=== PATIENT | male | born 1980 | race Caucasian/White ===

== ENCOUNTER 2023-08-12 04:55 | Emergency (ER) | payer BC, SELFPAY ==
[2023-08-12 04:58] VITALS: BP 180/90
[2023-08-12 07:40] LABS: Urine Albumin Negative (Neg - Trace); Urine Bilirubin Negative (Negative); Urine Character Clear (Clear); Urine Color Yellow; Urine Glucose Negative (Negative); Urine Ketone Negative (Negative); Urine Leukocyte Trace (Negative); Urine Nitrite Negative (Negative); Urine Occult Blood 2+ (Negative); Urine Urobilinogen Negative (Neg - 1+)
[2023-08-12 07:54] LABS: % Basophils 0.7 % (0-2); % Immature Granulocytes 0.3 % (0-0.5); % Monocytes 9.8 % (1.7-9.3); % Neutrophils 68.2 % (42.2-75.2); Absolute Basophils 0.1 10^3/uL (0-0.2); Absolute Eosinophils 0.1 10^3/uL (0-0.7); Absolute Lymphocytes 1.8 10^3/uL (1.2-3.4); Absolute Monocytes 0.9 10^3/uL (0.1-0.6); Hematocrit 44.6 % (39.0-52.0); Hemoglobin 14.8 g/dL (13.0-18.0); Mean Corp Hgb Conc. 33.2 g/dL (33.0-37.0); Mean Corpuscular Volume 93.3 fL (80.0-94.0); Nucleated Red Blood Cells % 0 % (-); Platelet Count 271 10^3/uL (130-400); Red Blood Cell Count 4.78 10^6/uL (4.70-6.10); Red Cell Dist. Width 12.8 % (11.5-14.5); White Blood Cell Count 8.8 10^3/uL (4.8-10.8)
[2023-08-12 07:57] LABS: Urine White Cell 0-2 /HPF (0-5)
[2023-08-12 08:11] LABS: ALT (SGPT) 44 U/L (0-50); AST (SGOT) 29 U/L (17-59); Albumin 4.6 g/dl (3.5-5.0); Alkaline Phosphatase 94 U/L (38-126); Blood Urea Nitrogen 16 mg/dl (9-20); Carbon Dioxide 28 mmol/L (22-30); Chloride 104 mmol/L (98-107); Glucose 99 mg/dl (70-99); Lipase 121 U/L (23-300); Potassium 4.4 mmol/L (3.5-5.1); Sodium 139 mmol/L (135-145); Total Bilirubin 0.6 mg/dl (0.2-1.3); Total Protein 7.8 g/dl (6.3-8.2); eGFR > 60.00
[2023-08-12 08:45] VITALS: BP 141/76
[2023-08-12 08:46] VITALS: BMI 50.8
--- NOTE | 2023-08-12 09:20 | ED.GENMED ---
History of Present Illness
General
Chief Complaint: Abdominal Pain
Time Seen by Provider: 08/12/23 07:39
Travel History
Have you had any contact with someone who has COVID-19?: No
Do you have any symptoms of coronavirus? Fever > 100 degrees, chills, cough, shortness of breath, sore throat, loss of taste or smell, muscle aches, or headache?: No
History of Present Illness
History of Present Illness:
43-year-old male presents to the emergency department for evaluation of suprapubic pressure and left flank pain developing yesterday. Pressure symptoms lasted for majority of yesterday, felt as though he needed to urinate frequently. That symptom
improved this morning however he had abrupt onset of left flank pain and diaphoresis that lasted approximate 15 to 30 minutes. He is currently asymptomatic. No hematuria or dysuria. Denies any fevers or chills currently
Past History
Past History
ED Past Medical History: None
ED Past Surgical History: None
Review of Systems
Review of Systems
Allergies reviewed?: Yes
All Other Systems: ROS reviewed and negative except as documented in HPI and ROS
Phy Exam
Physical Exam
Physical Exam:
GEN: Well appearing, NAD, WDWN
HEENT: Oral mucosa moist, no scleral icterus
Cardiac: Regular rate
Lung: No respiratory distress, no tachypnea
Abdomen: Soft, nontender, no CVA tenderness
MSK: No gross deformity or injuries
Skin: Good color, no pallor or jaundice, no rashes
Neuro: AO x3, moves all extremities freely
Psych: Calm, cooperative
Course
Orders/Labs/Results
Orders:
Orders
08/12/23 07:23
CMP [Comprehensive Metabolic Panel] Urgent
Complete Blood Count/With Diff Urgent
Lipase Urgent
08/12/23 07:26
Urinalysis Reflex To Culture Urgent
Date Specimen was Collected: 08/12/23
Time Specimen was Collected: 07:24
Urine Microscopic Reflex Cult Urgent
08/12/23 08:26
CT Abd/pel Without Iv Or Oral Urgent
Comment:
Reason For Exam: L flank pain/hematuria
Abnormal Lab Results
08/12/23 08/12/23
07:23 07:26
Absolute Monos (auto) 0.9 H 10^3/uL
(0.1-0.6)
Lymphocytes % 20.0 L %
(20.5-51.1)
Monocytes % 9.8 H %
(1.7-9.3)
Ur Occult Blood Reflex 2+ A
(Negative)
Leukocyte Esterase Rfl Trace A
(Negative)
Urine RBC 7-10 A /HPF
(0-2)
08/12/23 07:23
08/12/23 07:23
Vital Signs
Initial and Last Documented VS:
Initial Vital Signs
Temp Pulse Resp BP Pulse Ox
98 F 76 22 180/90 98
08/12/23 04:58 08/12/23 04:58 08/12/23 04:58 08/12/23 04:58 08/12/23 04:58
Last Documented Vital Signs
Temp Pulse Resp BP Pulse Ox
98.2 F 76 22 141/76 97
08/12/23 08:47 08/12/23 04:58 08/12/23 04:58 08/12/23 08:45 08/12/23 08:45
MDM/Problems Addressed
MDM/Problems Addressed:
Initial labs reveal minor microscopic hematuria giving suggestion of potential kidney stone. Patient has no reproducible tenderness to suggest acute surgical abdominal pathology. Imaging was obtained confirming diagnosis of ureterolithiasis. He
is asymptomatic at this time. Will prescribe NSAIDs and Flomax for expectant management, no indication for urologic consultation or procedural intervention, no indication for antibiotics
*Critical Care Note
Total Time (30-74mins, 75-104mins- exclusive of procedures): Not Applicable
ED Attending Note
-
Portions of this chart may have been created with voice recognition software.� Occasional wrong word or��sound alike� substitutions may have occurred due to the inherent limitations of voice recognition software.
Discharge Plan
Departure
Patient Disposition: Home (Routine Discharge)
Patient with high blood pressure during this ER visit?: Yes
Discharge Problem:
Ureterolithiasis
Prescriptions:
New
diclofenac sodium 75 mg tablet,delayed release (DR/EC)
75 mg PO BID PRN (Reason: Pain) Qty: 20 0RF
tamsulosin [Flomax] 0.4 mg capsule
0.4 mg PO HS Qty: 7 0RF
Referrals:
NONE,* [Family Provider] -
Activity Restrictions/Additional Instructions:
Return to the ER if you develop worsening pain or fever
Interventions
Interventions:
*Risk Screen - Suicide Last Done: 08/12/23 04:58
*General Assessment Last Done: 08/12/23 09:33
*Neglect/Abuse Screening Last Done: 08/12/23 04:58
ED- Fall Risk Assessment Last Done: 08/12/23 09:15
*Nursing Disposition Last Done: 08/12/23 09:33
VN-Nfkkvh-Oqsjgkouvx Assessment Last Done: 08/12/23 09:15
Discharge Date and Time
Discharge Date/Time: 08/12/23 09:35
Print Language: ZAMBIAN
== END 2023-08-12 09:35 | disposition home or self-care (01) ==
LOC: EMR 04:55
PROVIDERS: EMERGENCY PHYSICIAN Emergency Medicine
DX: N20.1 Calculus of ureter (principal)
CPT/HCPCS: 99284; 74176; 80053; 81003; 81015; 83690; 85025